=== PATIENT | male | born 1950 | race Caucasian/White ===

== ENCOUNTER 2020-01-27 13:30 | Emergency (ER) | payer MEDICARE, OTHER ==
[~2020-01-27] VITALS: Ht 180.3 cm; Wt 68.2 kg
[~2020-01-27 13:30] MED LIST: ASPI-1009 PO; CARI350T PO; DOCU-274 PO; GABA-338 PO; HYDR-4353 PO; LORA-512 PO; MELO-83 PO; TRAZ-89 PO
[2020-01-27 14:03] VITALS: BP 155/72
[2020-01-27] MEDS ORDERED: HYDROcodone/acetaminophen 10/325mg tab PO ONE (15:45)
[2020-01-27] MEDS ORDERED: DICL100G15 TOP (16:08)
[2020-01-27] MEDS ORDERED: HYDR-3965 PO (16:08)
== END 2020-01-27 16:17 | disposition home or self-care (01) ==
LOC: ER 13:31
DX: M25.511 Pain in right shoulder (principal); E78.00 Pure hypercholesterolemia, unspecified; E11.9 Type 2 diabetes mellitus without complications; M19.90 Unspecified osteoarthritis, unspecified site; G89.29 Other chronic pain; F12.90 Cannabis use, unspecified, uncomplicated; Z88.5 Allergy status to narcotic agent; Z86.718 Personal history of other venous thrombosis and embolism; Z98.890 Other specified postprocedural states; Z79.82 Long term (current) use of aspirin; Z79.899 Other long term (current) drug therapy
CPT/HCPCS: 73030; 99283